=== PATIENT | female | born 1955 | race Caucasian/White ===

== ENCOUNTER 2016-08-25 22:16 | Inpatient (IN) | payer MEDICARE, MEDICAID ==
[~2016-08-25] VITALS: Ht 152.4 cm; Wt 68.9 kg
[2016-08-25 22:30] VITALS: BP 132/81
[2016-08-25] MEDS ORDERED: CARI350T PO ×2 (22:46)
[2016-08-25] MEDS ORDERED: ATOR10TA PO (22:46)
[2016-08-25] MEDS ORDERED: MAGNESIUM HYDROXIDE 30 ML LIQUID UDC PO PRN (23:00)
[2016-08-25] MEDS ORDERED: HYDROCODONE/APAP 5-325MG TABLET PO PRN (23:00)
[2016-08-25] MEDS ORDERED: ONDANSETRON 4 MG/2 ML VIAL IV PRN (23:00)
[2016-08-25] MEDS ORDERED: MORPHINE SULFATE 2 MG/1 ML DISP.SYRIN IV PRN (23:00)
[2016-08-25] MEDS ORDERED: ZOLPIDEM 5 MG TABLET PO PRN (23:00)
[2016-08-25] MEDS ORDERED: CARISOPRODOL 350 MG TABLET PO PRN (23:00)
[2016-08-25] MEDS ORDERED: NITROGLYCERIN 0.3 MG/TAB BOTTLE SL PRN (23:00)
[2016-08-26] VITALS: BP 123/66
[2016-08-26] MEDS ORDERED: MAG HYDROX/AL HYDROX/SIMETH 30 ML LIQUID UDC PO PRN (00:45)
[2016-08-26 04:00] VITALS: BP 128/78
[2016-08-26 06:42] LABS: BASOPHILS % (AUTO) 0.5 % (0.0-2.0); EOSINOPHILS # (AUTO) 0.4 K/uL (0.0-0.7); EOSINOPHILS % (AUTO) 5.4 % (0.0-7.0); HEMATOCRIT 39.4 % (37.0-47.0); HEMOGLOBIN 13.3 g/dL (12.0-16.0); LYMPHOCYTES # (AUTO) 2.8 K/uL (0.8-4.8); LYMPHOCYTES % (AUTO) 39.6 % (20.5-51.5); MEAN CORPUSCULAR HEMOGLOBIN 31.6 uug (27.0-31.0); MEAN CORPUSCULAR HGB CONC 34 g/dL (32.0-37.0); MEAN CORPUSCULAR VOLUME 93.9 fL (81.0-99.0); MONOCYTES # (AUTO) 0.4 K/uL (0.1-1.30); MONOCYTES % (AUTO) 6.3 % (0.0-11.0); NEUTROPHILS # (AUTO) 3.5 K/uL (1.8-8.9); NEUTROPHILS % (AUTO) 48.2 % (38.5-71.5); PLATELET COUNT (AUTO) 223 K/uL (150-450); RED BLOOD CELL COUNT(AUTO) 4.19 MIL/uL (4.20-5.40); RED CELL DISTRIBUTION WIDTH 12.6 % (11.5-14.5); WHITE BLOOD COUNT (AUTO) 7.1 K/uL (4.0-11.2)
--- NOTE | 2016-08-26 06:46 | NUR ---
PT ADMITTED DUE TO CHEST PAIN , CAME FROM [place]. ALERT,ORIENTED, BUT CHEST PAIN RESOLVED.NO CHEST PAIN OVERNIGHT,CHILDREN WERE HERE LAST NIGHT COMFORTING THE PT, PT BECAME VERY EMOTIONAL AND WAS CRYING.PER PT PROBABLY STRESS PAIN, FAMILY ISSUES.PT VOIDING WELL,HEPLOCK, SINUS RHYTHM ON MONITOR, VSS,AFEBRILE.
[2016-08-26 07:27] LABS: THYROID STIMULATING HORMONE 2.943 mIU/mL (0.358-3.740)
[2016-08-26 07:48] LABS: ALBUMIN 3.3 g/dL (3.4-5.0); BILIRUBIN,TOTAL 0.5 mg/dL (0.2-1.0); CALCIUM 8.9 mg/dL (8.5-10.1); CREATININE 0.6 mg/dL (0.6-1.3); MAGNESIUM 2.3 mg/dL (1.8-2.4); POTASSIUM 3.7 mmol/L (3.5-5.1); TOTAL PROTEIN, SERUM 6.8 g/dL (6.4-8.2)
[2016-08-26] MEDS: ASPIRIN EC 81 MG TABLET.DR PO SCH (08:25)
[2016-08-26] MEDS: ACETAMINOPHEN 325 MG TABLET PO PRN ×2 (11:42→17:34)
[2016-08-26 11:58] VITALS: BP 123/75
--- NOTE | 2016-08-26 12:39 | NUR ---
CXR AND ECHO COMPLETE, PT HAS NO CHEST PAIN BUT COMPLAINS OF HEADACHE, TYLENOL GIVEN PER ORDERS AND EFFECTIVE
--- NOTE | 2016-08-26 14:52 | NUR ---
DR NAVA IN ROOM WITH PT
[2016-08-26] MEDS: PANTOPRAZOLE SODIUM 40 MG TABLET.DR PO SCH (15:21)
[2016-08-26 16:11] VITALS: BP 132/70
--- NOTE | 2016-08-26 20:00 | NUR ---
RECEIVED PATIENT AWAKE IN BED. PATIENT IS A/O X4. DENIES CHEST PAIN OR ANY OTHER DISCOMFORT. NO RESP. DISTRESS NOTED. HEPLOCK INTACT AND PATENT. PATIENT EDUCATED ON STRESS TEST PROCEDURE. VERBALIZED UNDERSTANDING. PATIENT WILL BE NPO AFTER MID-NIGHT. CALL LIGHT IN REACH. ALL NEEDS ATTENDED. WILL CONTINUE TO MONITOR.
[2016-08-26] MEDS ORDERED: DOCUSATE SODIUM 100 MG CAPSULE PO SCH (21:00)
[2016-08-26] MEDS ORDERED: ATORVASTATIN 10 MG TABLET PO SCH (21:00)
[2016-08-26 21:51] VITALS: BP 142/76
--- NOTE | 2016-08-27 00:01 | NUR ---
PATIENT NPO ORDERED FOR STRESS TEST IN AM.
[2016-08-27 05:31] VITALS: BP 140/81
--- NOTE | 2016-08-27 05:59 | NUR ---
PATIENT ASLEEP IN BED. EASILY AROUSABLE. SLEPT WELL THROUGHOUT THE NIGHT. VSS. DENIES ANY PAIN OR DISCOMFORT. NO RESP. DISTRESS NOTED. H/L INTACT AND PATENT. CALL LIGHT IN REACH. ALL NEEDS ATTENDED. WILL CONTINUE TO MONITOR.
[2016-08-27] MEDS: PANTOPRAZOLE SODIUM 40 MG TABLET.DR PO SCH (06:13)
--- NOTE | 2016-08-27 07:35 | NUR ---
pt awake in bed, stating nervous for procedure. educated on procedure and relaxation techniques, all safety and comfort measures attended to, call light in reach
[2016-08-27 07:42] LABS: HEMATOCRIT 42.2 % (37.0-47.0); HEMOGLOBIN 13.6 g/dL (12.0-16.0); MEAN CORPUSCULAR HEMOGLOBIN 30.4 uug (27.0-31.0); MEAN CORPUSCULAR HGB CONC 32 g/dL (32.0-37.0); MEAN CORPUSCULAR VOLUME 94.8 fL (81.0-99.0); PLATELET COUNT (AUTO) 228 K/uL (150-450); RED BLOOD CELL COUNT(AUTO) 4.46 MIL/uL (4.20-5.40); RED CELL DISTRIBUTION WIDTH 12.9 % (11.5-14.5); WHITE BLOOD COUNT (AUTO) 6.9 K/uL (4.0-11.2)
[2016-08-27 08:13] LABS: CALCIUM 8.8 mg/dL (8.5-10.1); CREATININE 0.6 mg/dL (0.6-1.3); MAGNESIUM 2.4 mg/dL (1.8-2.4); PHOSPHOROUS 3.4 mg/dL (2.5-4.9); POTASSIUM 3.9 mmol/L (3.5-5.1)
[2016-08-27] MEDS ORDERED: REGADENOSON 0.4 MG/5 ML PREFILLED SYR IV ONE (09:00)
[2016-08-27] MEDS: ASPIRIN EC 81 MG TABLET.DR PO SCH (09:00)
--- NOTE | 2016-08-27 09:02 | NUR ---
DR BALL IN ROOM WITH PT
--- NOTE | 2016-08-27 09:03 | NUR ---
PT NPO FOR STRESS TEST, ORDERED ASPIRIN NOT GIVEN
--- NOTE | 2016-08-27 10:36 | NUR ---
PT OFF FLOOR FOR SECOND PART OF STRESS TEST
[2016-08-27 11:09] LABS: BASOPHILS % (AUTO) 0.5 % (0.0-2.0); EOSINOPHILS # (AUTO) 0.4 K/uL (0.0-0.7); EOSINOPHILS % (AUTO) 5.6 % (0.0-7.0); LYMPHOCYTES # (AUTO) 2.5 K/uL (0.8-4.8); LYMPHOCYTES % (AUTO) 36.9 % (20.5-51.5); MONOCYTES # (AUTO) 0.4 K/uL (0.1-1.30); NEUTROPHILS # (AUTO) 3.5 K/uL (1.8-8.9)
[2016-08-27 12:09] VITALS: BP 160/65
[2016-08-27] MEDS ORDERED: OMEP20CA10 PO (13:33)
--- NOTE | 2016-08-27 14:35 | NUR ---
discharge protocol followed, instructions given as well as prescription, pt verbalized understanding. iv taken out with no redness or irritation noted. id band removed all belonging accounted for. pt left via wheelchair in private car with daughter and family
== END 2016-08-27 14:30 | disposition home or self-care (01) | DRG 392 ==
LOC: TELE 22:16 → MED 08-26 13:09
PROVIDERS: ADMIT Internal Medicine; ATTEND Internal Medicine
DX: K21.0 Gastro-esophageal reflux disease with esophagitis (principal); E78.5 Hyperlipidemia, unspecified; R73.03 Prediabetes; R07.89 Other chest pain
CPT/HCPCS: 36415; 70030-TC; 71010; 78452; 83735; 84100; 84443; 85025; 93307; A9502; J2785